=== PATIENT | male | born 1975 | race Caucasian/White ===

== ENCOUNTER 2017-03-01 02:44 | Emergency (ER) | payer OTHER ==
[~2017-03-01] VITALS: Ht 193 cm; Wt 90.9 kg
[~2017-03-01 02:44] MED LIST: ABILIFY20 MG PO; BENADRYL50 MG PO; Buspar PO; Cogentin PO; Habitrol,Nicoderm CQ TD; LaMICtal PO; PEN-VEE K,VEET500 MG PO; PREDNISONE50 MG PO; Strattera PO; ULTRAM50 MG PO; Zithromax PO
[2017-03-01 03:46] VITALS: BP 138/95
== END 2017-03-01 03:46 | disposition left against medical advice (07) ==
LOC: EME → EDBD 02:44 → EME 03:46
DX: F31.9 Bipolar disorder, unspecified (principal); F60.9 Personality disorder, unspecified; Z53.20 Procedure and treatment not carried out because of patient's decision for unspecified reasons
CPT/HCPCS: 80053; 81003; 85027; 99281; 99283; G0480

== ENCOUNTER 2017-05-22 07:53 | Day surgery (SDC) | payer OTHER ==
[~2017-05-22] VITALS: Ht 193 cm; Wt 84.3 kg
[~2017-05-22 07:53] MED LIST changes: +BUSPAR15 MG PO; +CLOBETASOL EMOL45 GM TP; +CLOBEX59 M1 TP; +CLOBEX59 ML TP; +DESYREL100 MG PO; +KLONOPIN1 MG PO; +LAMICTAL200 MG PO; +STRATTERA100 MG PO; +WELLBUTRIN SR150 MG PO; +[UNRECOGNIZED DRUG - OTHER] IM
[2017-05-22 08:48] VITALS: BP 122/75
[2017-05-22] MEDS ORDERED: TORADOL10 MG PO ×2 (12:01→12:03)
[2017-05-22 12:55] VITALS: BP 129/69
[2017-05-22 13:44] VITALS: BP 143/75
== END 2017-05-22 13:58 | disposition home or self-care (01) ==
LOC: SDC 07:53
PROC: 0YU64JZ Supplement Left Inguinal Region with Synthetic Substitute, Percutaneous Endoscopic Approach (ICD-10-PCS; principal; 2017-05-22)
DX: K40.90 Unilateral inguinal hernia, without obstruction or gangrene, not specified as recurrent (principal); F17.200 Nicotine dependence, unspecified, uncomplicated; G47.33 Obstructive sleep apnea (adult) (pediatric)
CPT/HCPCS: C1727; C1781; J0131; J0690; J1100; J1885; J2250; J3010; J3475